=== PATIENT | female | born 1995 | race Caucasian/White ===

== ENCOUNTER 2016-10-06 20:53 | Emergency (ER) | payer BC ==
[~2016-10-06] VITALS: Ht 157.5 cm; Wt 76.5 kg
[~2016-10-06 20:53] MED LIST: BCPILLS PO
[2016-10-06 20:56] VITALS: TEMP 36.8; Ht 157.5 cm; Wt 76.5 kg
[2016-10-06] MEDS ORDERED: KETOROLAC TROMETHAMINE 30 MG/ML VIAL IV STA (21:04)
[2016-10-06] MEDS ORDERED: SODIUM CHLORIDE 0.9% 1000ML 1,000 ML IV STA (21:04)
[2016-10-06] MEDS ORDERED: ACETAMINOPHEN 500 MG TAB PO STA (21:04)
--- NOTE | 2016-10-06 21:12 | EMERGENCY ROOM VISIT NOTE ---
History Report prepared by Martha: Juan Antonio Stroud Under the Supervision of: Dr. Scott Nevarez M.D. First contact with patient: 21:00 Chief Complaint: FLANK PAIN Stated Complaint: LOWER BACK PAIN,[place] TO PEE,CHILLS History of Present Illness The patient is a 21 year old female who presents to the Emergency Room with complaints of worsening pain in her right flank that began four days prior to arrival. She rates her current pain as a 6/10 in severity. The patient states that her symptoms began with burning with urination four days ago, and gradually worsened. Her flank pain is worsened with deep inspiration. She is still experiencing burning when she voids, and has noticed an increased urgency. The patient notes that she feels the need to void frequently, but cannot always go. She also notes experiencing some chills recently. She denies any history of kidney infections/UTIs, and any chance of . 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 A total of 10 systems reviewed and were otherwise negative. Past Medical & Surgical Patient denies any pertinent medical/surgical histories. Family History Diabetes mellitus FH: heart disease Hypertension Kidney disease Kidney stones Social History Smoking Status: Never Smoker Drug Use: none Marital Status: single Housing Status: lives with friends Occupation Status: employed, [employer] student Current/Historical Medications Scheduled Control Pills ( Control Pills), 1 TAB PO QPM Cefdinir (Omnicef), 300 MG PO Q12H Allergies Coded Allergies: NO KNOWN DRUG ALLERGIES (Verified Allergy, Unknown, ., 10/06/16) Physical Exam Vital Signs Date Time Temp Pulse Resp B/P (MAP) Pulse Ox O2 Delivery O2 Flow Rate FiO2 10/06/16 22:40 76 16 142/89 99 Room Air 10/06/16 20:56 36.8 87 18 168/112 100 Room Air Physical Exam GENERAL: Patient is in no acute distress. HEENT: No acute trauma, normocephalic atraumatic, mucous membranes moist, no nasal congestion, no scleral icterus. NECK: No stridor, no adenopathy, no meningismus, trachea is midline. LUNGS: Clear to auscultation bilaterally, no wheeze, no rhonchi, breath sounds equal. HEART: Without murmurs gallops or rubs, regular rate and rhythm. ABDOMEN: Soft, tenderness in the RUQ with palpation bowel sounds positive, no hernias, no peritonitis. BACK: There is right flank discomfort with percussion. EXTREMITIES: No cyanosis or edema, full range of motion of all the joints without pain or difficulty, no signs for acute trauma. NEUROLOGIC: Oriented x 3, no acute motor or sensory deficits, no focal weakness. SKIN: No rash, no jaundice, no diaphoresis. Medical Decision & Procedures ER Provider Diagnostic Interpretation: EXAMINATION: RENAL ULTRASOUND CLINICAL HISTORY: FLANK PAIN COMPARISON STUDY: None FINDINGS: The right kidney measures 10.8 cm. The left kidney measures 12.0 cm. There is no evidence of hydronephrosis. There are no renal masses. No bladder abnormalities are visualized. Bilateral ureteral jets were visualized. IMPRESSION : Normal renal ultrasound. Electronically signed by: Eber Belcher M.D. 10/06/2016 10:14 PM Dictated Date/Time: 10/06/2016 10:13 PM Laboratory Results 10/06/16 21:15 Red Blood Count 4.80, Mean Corpuscular Volume 88.5, Mean Corpuscular Hemoglobin 29.0, Mean Corpuscular Hemoglobin Concent 32.7, Mean Platelet Volume 11.1, Neutrophils (%) (Auto) 58.3, Lymphocytes (%) (Auto) 28.2, Monocytes (%) (Auto) 10.5, Eosinophils (%) (Auto) 2.5, Basophils (%) (Auto) 0.3, Neutrophils # (Auto ) 6.07, Lymphocytes # (Auto) 2.94, Monocytes # (Auto) 1.09, Eosinophils # (Auto ) 0.26, Basophils # (Auto) 0.03 10/06/16 21:15 Test 10/06/16 00:00 10/06/16 21:15 Urine Color YELLOW Urine Appearance CLEAR (CLEAR) Urine pH 6.5 (4.5-7.5) Urine Specific [place] 1.016 (1.000-1.030) Urine Protein 1+ (NEG) Urine Glucose (UA) NEG (NEG) Urine Ketones NEG (NEG) Urine Occult Blood 1+ (NEG) Urine Nitrite NEG (NEG) Urine Bilirubin NEG (NEG) Urine Urobilinogen NEG (NEG) Urine Leukocyte Esterase SMALL (NEG) Urine WBC (Auto) 10-30 /hpf (0-5) Urine RBC (Auto) 5-10 /hpf (0-4) Urine Hyaline Casts (Auto) 0 /lpf (0-5) Urine Epithelial Cells (Auto) 20-30 /lpf (0-5) Urine Bacteria (Auto) 4+ (NEG) Urine Renal Epithelial Cells /lpf (0-5) White Blood Count 10.41 K/uL (4.8-10.8) Red Blood Count 4.80 M/uL (4.2-5.4) Hemoglobin 13.9 g/dL (12.0-16.0) Hematocrit 42.5 % (37-47) Mean Corpuscular Volume 88.5 fL (80-100) Mean Corpuscular Hemoglobin 29.0 pg (25-34) Mean Corpuscular Hemoglobin Concent 32.7 g/dl (32-36) Platelet Count 333 K/uL (130-400) Mean Platelet Volume 11.1 fL (7.4-10.4) Neutrophils (%) (Auto) 58.3 % Lymphocytes (%) (Auto) 28.2 % Monocytes (%) (Auto) 10.5 % Eosinophils (%) (Auto) 2.5 % Basophils (%) (Auto) 0.3 % Neutrophils # (Auto) 6.07 K/uL (1.4-6.5) Lymphocytes # (Auto) 2.94 K/uL (1.2-3.4) Monocytes # (Auto) 1.09 K/uL (0.11-0.59) Eosinophils # (Auto) 0.26 K/uL (0-0.5) Basophils # (Auto) 0.03 K/uL (0-0.2) RDW Standard Deviation 42.7 fL (36.4-46.3) RDW Coefficient of Variation 13.2 % (11.5-14.5) Immature Granulocyte % (Auto) 0.2 % Immature Granulocyte # (Auto) 0.02 K/uL (0.00-0.02) Anion Gap 10.0 mmol/L (3-11) Est Creatinine Clear Calc Drug Dose 78.1 ml/min Estimated GFR () 83.7 Estimated GFR (Non- 72.2 BUN/Creatinine Ratio 10.9 (10-20) Calcium Level 9.3 mg/dl (8.5-10.1) Total Bilirubin 0.2 mg/dl (0.2-1) Aspartate Amino Transf (AST/SGOT) 19 U/L (15-37) Alanine Aminotransferase (ALT/SGPT) 32 U/L (12-78) Alkaline Phosphatase 55 U/L (45-117) Total Protein 8.0 gm/dl (6.4-8.2) Albumin 3.5 gm/dl (3.4-5.0) Globulin 4.5 gm/dl (2.5-4.0) Albumin/Globulin Ratio 0.8 (0.9-2) Lipase 175 U/L (73-393) Human Chorionic Gonadotropin, Qual NEG (NEG) Laboratory results reviewed by me. Medications Administered Medications (Trade) Dose Ordered Sig/Wiley Route Start Time Stop Time Status Last Admin Dose Admin Sodium Chloride 1,000 ml @ 999 mls/hr Q1H1M STAT IV 10/06/16 21:04 10/06/16 22:04 DC 10/06/16 21:04 999 MLS/HR Ketorolac Tromethamine (Toradol Inj) 30 mg NOW STAT IV 10/06/16 21:04 10/06/16 21:07 DC 10/06/16 21:04 30 MG Acetaminophen (Tylenol Tab) 1,000 mg NOW STAT PO 10/06/16 21:04 10/06/16 21:07 DC 10/06/16 21:04 1,000 MG Ceftriaxone Sodium (Rocephin Inj) 1 gm NOW STAT IV 10/06/16 21:58 10/06/16 22:00 DC 10/06/16 21:58 1 GM ED Course 2100: The patient was evaluated in room C7. A complete history and physical exam was performed. 2103: Ordered Acetaminophen 1000 mg PO, Toradol 30 mg IV, Sodium Chloride 1000 mL @ 999 mL/hr IV 2157: Ordered Rocephin 1 gm IV. 2341: Reevaluated the patient. Discussed results and discharge instructions: She verbalized understanding and agreement. The patient is ready for discharge. Medical Decision Differential Diagnosis includes; Pyelonephritis, Renal colic, hydronephrosis, renal failure, , UTI, musculoskeletal pain, pneumonia, biliary colic, pancreatitis, infection. There is no leukocytosis or concerning anemia. No significant electrolyte abnormality, kidney failure or hepatitis. No pancreatitis. testing is negative. Urinalysis does suggest infection with +4 bacteria. Urine culture is pending. Renal ultrasound does not show hydronephrosis. On exam, the patient was not febrile or toxic. She had not been vomiting. She did have discomfort with percussion of the right flank. She complains of burning with urination. The patient received IV saline, IV ceftriaxone. She was given IV Toradol and oral Tylenol. The patient looks well, she feels improved. She is being discharged on Omnicef twice a day for 10 days. Motrin and/or Tylenol for pain, rest and hydration were encouraged. She will return if not improving or feeling worse. She will return for vomiting. Impression Primary Impression: Pyelonephritis Scribe Attestation The scribe's documentation has been prepared under my direction and personally reviewed by me in its entirety. I confirm that the note above accurately reflects all work, treatment, procedures, and medical decision making performed by me. Departure Information Dispostion Home / Self-Care Prescriptions Cefdinir (OMNICEF) 300 Mg Cap 300 MG PO Q12H for 10 Days, #20 CAP Prov: Scott Nevarez M.D. 10/06/16 Referrals No Doctor, Assigned (PCP) Forms HOME CARE DOCUMENTATION FORM, IMPORTANT VISIT INFORMATION Patient Instructions My [facility] Additional Instructions omnicef 2x per day for 10 days motrin or tylenol for pain rest stay well hydrated return for fever, vomiting or if not improving
[2016-10-06 21:29] LABS: BASO % 0.3 %; BASO ABS # 0.03 K/uL (0-0.2); COMPLETE YES; EOS % 2.5 %; HEMATOCRIT 42.5 % (37-47); IG% 0.2 %; LYMPH % 28.2 %; LYMPH ABS # 2.94 K/uL (1.2-3.4); MEAN CELL VOLUME 88.5 fL (80-100); MEAN CORPUSCULAR HGB CONC 32.7 g/dl (32-36); MEAN PLATELET VOLUME 11.1 fL (7.4-10.4); MONO % 10.5 %; NEUT % 58.3 %; PLATELET COUNT 333 K/uL (130-400); WHITE BLOOD COUNT 10.41 K/uL (4.8-10.8)
[2016-10-06 21:32] LABS: URINE APPEARANCE CLEAR (CLEAR); URINE BILIRUBIN NEG (NEG); URINE COLOR YELLOW; URINE NITRITE NEG (NEG); URINE PH 6.5 (4.5-7.5); URINE SPECIFIC GRAVITY 1.016 (1.000-1.030); UROBILINOGEN NEG (NEG); ZZUR CULT IF INDIC CLEAN CATCH YES
[2016-10-06 21:38] LABS: PREG INTERNAL NEGATIVE QC NEG CLEAR BACKGROUND; PREG INTERNAL POSITIVE QC POS CONTROL LINE
[2016-10-06 21:38] LABS: MANUAL MICROSCOPIC REQUIRED? NO; REVIEW REQ? YES
[2016-10-06 21:46] LABS: BUN/CREATININE RATIO 10.9 (10-20); CREATININE 1.1 mg/dl (0.60-1.20)
[2016-10-06 21:47] LABS: CALCIUM 9.3 mg/dl (8.5-10.1); POTASSIUM 3.9 mmol/L (3.5-5.1)
[2016-10-06 21:49] LABS: ALB/GLOB RATIO 0.8 (0.9-2)
[2016-10-06 21:52] LABS: URINE EPITHELIAL CELL AUTO 20-30 /lpf (0-5)
[2016-10-06] MEDS ORDERED: CEFTRIAXONE SOD INJ 1 GM ADDVIAL IV STA (21:58)
--- NOTE | 2016-10-06 22:15 | DIAGNOSTIC IMAGING REPORT ---
EXAMINATION: RENAL ULTRASOUND CLINICAL HISTORY: FLANK PAIN COMPARISON STUDY: None FINDINGS: The right kidney measures 10.8 cm. The left kidney measures 12.0 cm. There is no evidence of hydronephrosis. There are no renal masses. No bladder abnormalities are visualized. Bilateral ureteral jets were visualized. IMPRESSION : Normal renal ultrasound. Electronically signed by: Eber Belcher M.D. 10/06/2016 10:14 PM Dictated Date/Time: 10/06/2016 10:13 PM
[2016-10-06] MEDS ORDERED: CEFD300C2 PO (22:49)
[2016-10-06 23:24] VITALS: BP 138/62; PULSE 66; O2SAT 98
--- NOTE | 2016-10-10 11:05 | Pharmacy Progress Note ---
ED Pharmacist Culture FollowUp Date of Service: Oct 10, 2016. Patient was sent home with a prescription for cefdinir, which should cover the E. coli growing from the patient's urine culture, based on sensitivity to ceftriaxone.
== END 2016-10-06 23:25 | disposition home or self-care (01) ==
LOC: C.EDB 20:55 → C.EDC 23:25
DX: N12 Tubulo-interstitial nephritis, not specified as acute or chronic (principal); Z83.3 Family history of diabetes mellitus; Z82.49 Family history of ischemic heart disease and other diseases of the circulatory system

== ENCOUNTER 2017-06-28 00:03 | Emergency (ER) | payer BC ==
[~2017-06-28] VITALS: Ht 157.5 cm; Wt 72.7 kg
[2017-06-28 00:08] VITALS: TEMP 37.2; Ht 157.5 cm; Wt 72.7 kg
[2017-06-28] MEDS ORDERED: IBUPROFEN 600 MG TAB PO STA (00:21)
--- NOTE | 2017-06-28 01:10 | EMERGENCY ROOM VISIT NOTE ---
ED Visit Note First contact with patient: 00:11 CHIEF COMPLAINT: knee pain HISTORY OF PRESENT ILLNESS: This 22 yo patient presents to the emergency department with friends after sustaining an injury to the left knee running into the base when she tripped and fell landing on her knee. Patient was able to continue the game of football. The patient denies any other injuries besides their knee. The patient complains of swelling without bruising. There is pain diffusely. They rate the pain as throbbing and 5/10. The patient states they are barely able to walk on it. No numbness or tingling. No previous injuries to this knee. No ankle, foot or hip pain. REVIEW OF SYSTEMS: A 6 system review of systems was completed with positives and pertinent negatives listed in the HPI. ALLERGIES: none MEDICATIONS: none PMH: none SOCIAL HISTORY: no drug use PHYSICAL EXAM: Vital Signs: Reviewed Nurse's notes, vital signs stable. GENERAL : Pleasant female, no acute distress, but appears in pain, well-developed, well- nourished. MENTAL STATUS: Alert, oriented to person place and time, and cooperative. MUSCULOSKELETAL: The left knee is swollen. There is no ecchymosis. There is no joint effusion present. The patient is tender diffusely. There is no joint line tenderness. The patella not subluxate. Range of motion is intact but painful. Strength of the quads and hamstrings is 5/5. Nick's is neg. Jaime's and Anterior Drawer tests are neg. There is no laxity with varus and valgus stressing. The foot and toes are warm and well- perfused. Dorsalis pedis pulse 2+. Sensation to pain and light touch is intact. Capillary refill less than 2 seconds. EMERGENCY DEPARTMENT COURSE: I examined the patient. X-rays of the left knee were reviewed by myself and my attending and reveal no fracture. The patient was placed in a knee immobilizer under my direction and the position was satisfactory. The patient was instructed on the use of crutches. Patient was advised to follow-up with orthopedics in a week if symptoms persist or here in the ER sooner for severe pain, numbness, tingling, worsening signs or symptoms or as needed. The patient was discharged home in good condition. Differential diagnosis includes sprain, meniscal injury, strain, fracture, dislocation and other etiologies were considered. DIAGNOSIS: Left knee sprain DISCHARGE INSTRUCTIONS: As below Case reviewed with my attending The chart was completed utilizing [employer] Speech voice recognition software. Grammatical errors, random word insertions, pronoun errors, and incomplete sentences are an occassional consequence of this system due to software limitations, ambient noise, and hardware issues. Any formal questions or concerns about the content, text, or information contained within the body of this dictation should be directly addressed to the physician phlebotomist medical lab assistant for clarification. Current/Historical Medications Scheduled Control Pills ( Control Pills), 1 TAB PO QPM Allergies Coded Allergies: NO KNOWN DRUG ALLERGIES (Verified Allergy, Unknown, ., 06/28/17) Vital Signs Date Time Temp Pulse Resp B/P (MAP) Pulse Ox O2 Delivery O2 Flow Rate FiO2 06/28/17 00:08 37.2 91 18 136/78 100 Room Air Medications Administered Medications (Trade) Dose Ordered Sig/Wiley Route Start Time Stop Time Status Last Admin Dose Admin Ibuprofen (Motrin Tab) 600 mg NOW STAT PO 06/28/17 00:21 06/28/17 00:24 DC 06/28/17 00:36 600 MG Departure Information Impression Primary Impression: Left knee sprain Dispostion Home / Self-Care Condition GOOD Referrals Lizandro Herrera M.D. Forms HOME CARE DOCUMENTATION FORM, IMPORTANT VISIT INFORMATION Patient Instructions My [facility], ED Sprain Knee Additional Instructions Ibuprofen(Motrin, Advil) may be used for fever or pain. Use 600mg every six hours as needed. Take with food. Avoid using more than 2400mg in a 24 hour period. Do not use 2400mg per day for more than three consecutive days without physician direction. Prolonged inappropriate use can lead to stomach upset or ulcers. This medication can be taken if you need to drive, work, or perform activities which may be dangerous when taking narcotic pain medication. (AND/OR) Acetaminophen(Tylenol) may be used for fever or pain. Use 1000mg every six hours as needed. Avoid using more than 3000mg in a 24 hour period. This medication can be taken if you need to drive, work, or perform activities which may be dangerous when taking narcotic pain medication. Ice compresses for 20 minutes at a time four times daily for 2-3 days. Use the crutches as instructed. Use the sling as instructed. Remove your arm from the sling 4-6 times a day and move all the joints around to keep them loose. Rest and elevate your injury. Wear knee immobilizer when up and about. Do not have it so tight that you cannot feel your foot. Continue current medications. Return to the ER immediately for any numbness, tingling, severe pain, extreme swelling in the extremity or as needed. Call Orthopedics in 3-5 days if symptoms persist to arrange follow up for your injury.
[2017-06-28 01:47] VITALS: BP 127/78; PULSE 73; O2SAT 98
--- NOTE | 2017-06-28 07:26 | DIAGNOSTIC IMAGING REPORT ---
L KNEE 3 VIEWS CLINICAL HISTORY: Left knee pain status post trauma COMPARISON: None. DISCUSSION: There is a suprapatellar joint effusion. There is minimal irregularity of the posterior aspect of the tibial plateau as visualized in the lateral view. A nondisplaced fracture cannot be excluded although the findings may simply represent a projectional artifact. If the patient has persistent pain, an MRI could be obtained in follow-up for further evaluation. IMPRESSION: 1. Suprapatellar joint effusion 2. Minimal irregularity of the posterior tibial plateau. If the patient has persistent symptoms, a CT scan or MRI could be obtained in follow-up. Electronically signed by: Eber Belcher M.D. 06/28/2017 7:25 AM Dictated Date/Time: 06/28/2017 7:22 AM
== END 2017-06-28 01:51 | disposition home or self-care (01) ==
LOC: C.EDB 00:05
DX: S83.92XA Sprain of unspecified site of left knee, initial encounter (principal); W18.09XA Striking against other object with subsequent fall, initial encounter

== ENCOUNTER → 2017-07-04 | Outpatient (CLI) | payer BC ==
--- NOTE | 2017-07-04 17:01 | DIAGNOSTIC IMAGING REPORT ---
L LOWER EXT JOINT WITHOUT CLINICAL HISTORY: 22 years-old Female with LEFT KNEE PAIN, R/O ACL TEAR. Acute left knee pain with concern for ACL tear COMPARISON: Left knee radiographs 06/28/2017 TECHNIQUE: Multiplanar, multisequence MRI of the left knee was performed without intravenous contrast. FINDINGS: MENISCI: Multidirectional increased T2 signal involves the posterior horn and posterior junction medial meniscus with extension into the posterior meniscal root nicely seen on images 5 through 9 of series 6 and also image 19 series 8 compatible with complex meniscal tear. There is minimal extrusion of the meniscus into the medial meniscal gutter. No definite displaced fragment or parameniscal cyst. The lateral meniscus appears sharp in contour and appears intact without discrete meniscal tear identified. CRUCIATE LIGAMENTS: There is a complete mid substance tear of the anterior crucial ligament involving both the anteromedial and posterior lateral bundles with redundant torn fibers seen within the intercondylar notch with moderate associated soft tissue edema. Posterior cruciate ligament appears intact. COLLATERAL LIGAMENTS: The popliteus tendon, biceps femoris tendon, fibular collateral ligament and iliotibial band are intact. The superficial and deep components of the medial collateral ligament are intact. EXTENSOR MECHANISM: The quadriceps and patellar tendons are intact. The medial and lateral patellar retinacula are intact. KNEE JOINT: Large joint effusion with T1 and T2 and intermediate to low signal structure within the suprapatellar recess measuring 0.5 x 2.9 x 2.1 cm on images 5 series 6 and 13 series 5. No definite chondral donor site identified. BONE MARROW: Moderate bone marrow edema of the posterior lateral aspect of the lateral tibial plateau with slight cortical impaction fracture, image 15 series 5. Moderate bone marrow edema is also noted involving the posterior aspect of the medial tibial plateau on image 9 series 5 without discrete fracture identified. SOFT TISSUES: Moderate subcutaneous edema of the soft tissues anterior to the patellar tendon. Trace fluid within the deep prepatellar bursa. Moderate deep soft tissue swelling posterior to the intercondylar notch, likely reactive. IMPRESSION: 1. Complete mid substance tear of the anterior cruciate ligament involving both the anteromedial and posterior lateral bundles with redundant fibers and moderate soft tissue edema within the intercondylar notch. 2. Complex tear of the posterior horn and posterior junction medial meniscus with tear extension into the posterior meniscal root. 3. Large joint effusion with 2.9 cm structure within the suprapatellar recess suggesting loose body. No definite donor site identified. 4. Bone marrow edema involving the posterior portions of the medial and lateral tibial plateaus with suggested subtle cortical impaction fracture involving the posterior aspect of the lateral tibial plateau. 5. No high-grade chondromalacia or posttraumatic osteochondral defect. The above report was generated using voice recognition software. It may contain grammatical, syntax or spelling errors. Electronically signed by: Tristin Nguyen M.D. 07/04/2017 4:59 PM Dictated Date/Time: 07/04/2017 4:44 PM
== END | disposition home or self-care (01) ==
LOC: C.MRIBC 15:57
PROVIDERS: ATTEND Orthopaedic Surgery
DX: S83.512A Sprain of anterior cruciate ligament of left knee, initial encounter (principal); S83.242A Other tear of medial meniscus, current injury, left knee, initial encounter; X58.XXXA Exposure to other specified factors, initial encounter